=== PATIENT | male | born 1960 | race Caucasian/White ===

== ENCOUNTER 2025-05-16 04:59 | Emergency (ER) | payer MEDICARE, OTHER ==
[2025-05-16 05:45] LABS: Leukocyte Moderate (Negative); Specific Gravity, Urine 1.020 (1.005-1.030)
[2025-05-16 05:46] LABS: Glucose, Urine (Dipstick) 100 mg/dL (Negative); Protein, Urine (Dipstick) 30 mg/dL (Neg-Trace)
[2025-05-16 05:47] LABS: Bacteria/HPF 1+ HPF (None Seen); CAUTI Indications for Culture Dysuria,urgency,freq; WBC/HPF Greater than 50 HPF (0-3)
[2025-05-16 05:48] LABS: Urine Culture Reflex Yes Yes
[2025-05-16] MEDS ORDERED: Cephalexin 500 MG CAP ONE (06:11)
== END 2025-05-16 06:16 | disposition home or self-care (01) ==
LOC: MADERS 04:59
DX: N39.0 Urinary tract infection, site not specified (principal); E03.9 Hypothyroidism, unspecified; Z79.890 Hormone replacement therapy
CPT/HCPCS: 81001; 87086; 99283